=== PATIENT | female | born 1955 | race Caucasian/White ===

== ENCOUNTER 2017-08-25 12:45 | Inpatient (IN) | payer MEDICARE, OTHER ==
[~2017-08-25] VITALS: Ht 142.2 cm; Wt 106.8 kg
[2017-08-25] VITALS (9 sets, daily range): BP systolic 121–154; BP diastolic 56–72; PULSE 76–95; RESP 18–26; TEMP 97.5–98.6; O2SAT 92–100
[~2017-08-25 12:45] MED LIST: ALPR.25 PO; FURO20TA PO; OMEP20TA PO; PARO10TA PO; SPIR25TA PO
--- NOTE | 2017-08-25 13:31 | RADRPT ---
EXAM DATE: 08/25/2017 1:21 PM EDT AGE/SEX: 62 years / Female INDICATIONS: Difficulty breathing and cough. CLINICAL DATA: This is the patient's initial encounter. Patient reports that signs and symptoms have been present for 4 - 6 days and indicates a pain score of 0/10. MEDICAL/SURGICAL HISTORY: Chronic obstructive pulmonary disease. None. COMPARISON: No prior exams available for comparison. FINDINGS: PA and lateral views of the chest demonstrate the lungs to be symmetrically aerated without evidence of mass, infiltrate or effusion. The cardiomediastinal contours are unremarkable. Osseous structures are intact. CONCLUSION: Negative examination. Electronically signed by: Russel Smith MD 08/25/2017 1:30 PM EDT
[2017-08-25 13:55] LABS: AUTOMATED NEUTROPHIL # 1.3 TH/MM3 (1.8-7.7); BASOPHIL % 1.3 % (0.0-2.0); EOSINOPHIL # 0.2 TH/MM3 (0-0.4); EOSINOPHIL % 6.7 % (0.0-4.0); HEMATOCRIT 37.1 % (35.0-46.0); HEMOGLOBIN 12.5 GM/DL (11.6-15.3); MEAN CELL VOLUME 95.4 FL (80.0-100.0); MEAN CORPUSCULAR HEMOGLOBIN 32.2 PG (27.0-34.0); MEAN CORPUSCULAR HGB CONC 33.8 % (32.0-36.0); MEAN PLATELET VOLUME 8.9 FL (7.0-11.0); MONO % 12.8 % (0.0-8.0); MONOCYTE # 0.4 TH/MM3 (0-0.9); NEUT % 44.2 % (16.0-70.0); PLATELET COUNT 60 TH/MM3 (150-450); RED BLOOD COUNT 3.89 MIL/MM3 (4.00-5.30); RED CELL DISTRIBUTION WIDTH 15.8 % (11.6-17.2); WHITE BLOOD COUNT 2.9 TH/MM3 (4.0-11.0)
[2017-08-25 14:13] LABS: BICARBONATE 29.1 MEQ/L (21.0-32.0); CALCIUM 8.2 MG/DL (8.5-10.1); CREATININE 0.67 MG/DL (0.50-1.00)
[2017-08-25] MEDS ORDERED: methylPREDNISolone SOD SUCC 125 MG/2 ML VIAL IV PUSH ONE (14:15)
[2017-08-25] MEDS ORDERED: SODIUM CHLORIDE 0.9% FLUSH 10 ML FLUSH IVF PRN (14:15)
[2017-08-25] MEDS: RESP: ALBUTEROL 2.5 MG/IPRATROPIUM 0.5 MG NEB (SCH) INH ×2 (14:22→20:11)
--- NOTE | 2017-08-25 14:44 | PD ---
HPI Chief Complaint: Respiratory Distress Time Seen by Provider: 13:37 Travel History International Travel<30 days: No Contact w/Intl Traveler<30days: No Traveled to known affect area: No History of Present Illness HPI 62-year-old female with PMH of GERD, COPD, HTN presents the ED for evaluation of 5 days history of worsening shortness of breath, cough productive of yellow phlegm. Patient endorses chills, has not measured a fever at home. She also endorses sinus congestion, rhinorrhea and sore throat. She endorses increasing edema in the lower extremities. States that she can only walk for 5 steps before becoming short of breath. Denies chest pain, palpitations, abdominal pain, nausea, vomiting. She is not oxygen dependent at home. Denies sick contacts. Did not receive this years flu vaccine. PFSH Past Medical History Arthritis: Yes Anxiety: Yes Depression: Yes Cancer: No Diabetes: No Diminished Hearing: No Gastrointestinal Disorders: Yes (HAD LIVER BIOP 07/22; POLYPS) GERD: Yes Glaucoma: No Hepatitis: Yes (HEP C, CIRRHOSIS) Hiatal Hernia: Yes Hypertension: No Inguinal Hernia: Yes Respiratory: Yes Thyroid Disease: No Menopausal: Yes : 2 Para: 2 Miscarriage: 0 Tubal Ligation: Yes Past Surgical History Abdominal Surgery: Yes (CHOLECTSTECTOMY) Cardiac Surgery: No Section: Yes (X2) Cholecystectomy: Yes Ear Surgery: No Endocrine Surgery: No Eye Surgery: No Genitourinary Surgery: No Gynecologic Surgery: Yes (C SECTION X 2, HYSTERECTOMY) Hysterectomy: Yes (2006) Oral Surgery: No Pacemaker: No Thoracic Surgery: No Other Surgery: Yes Social History Alcohol Use: No Tobacco Use: Yes (1/2 PACK CIGS/DAY) Substance Use: No (DENIES) Allergies-Medications (Allergen,Severity, Reaction): Coded Allergies: No Known Allergies (Verified Allergy, Unknown, 08/25/17) Uncoded Allergies: PT WITH STAGE 3 LIVER DISEASE (Adverse Reaction, Severe, 07/22/11) Reported Meds & Prescriptions Reported Meds & Active Scripts Active Reported Furosemide 20 Mg Tab 20 Mg PO DAILY Paroxetine Hcl 10 Mg Tab 10 Mg PO DAILY Spironolactone 25 Mg Tab 25 Mg PO DAILY Omeprazole 20 mg (Omeprazole) 20 Mg Tab 20 Mg PO BID Xanax 0.25 Mg (Alprazolam) 0.25 Mg Tab 0.25 Mg PO HS Review of Systems Except as stated in HPI: all other systems reviewed are Neg Physical Exam Narrative GENERAL: Pleasant, obese white female with some increased work of breathing. SKIN: Focused skin assessment warm/dry. HEAD: Atraumatic. Normocephalic. EYES: Pupils equal and round. No scleral icterus. No injection or drainage. ENT: No nasal bleeding or discharge. Mucous membranes pink and moist. NECK: Trachea midline. No JVD. CARDIOVASCULAR: Regular rate and rhythm. No murmur appreciated. RESPIRATORY: +accessory muscle use. Breath sounds wheezy and tight bilaterally. No rhonchi. GASTROINTESTINAL: Abdomen soft, non-tender, nondistended. Hepatic and splenic margins not palpable. MUSCULOSKELETAL: No obvious deformities. No clubbing. No cyanosis. 2+ pitting edema to the knees bilaterally. Vasculitic changes in the lower extremities. NEUROLOGICAL: Awake and alert. No obvious cranial nerve deficits. Motor grossly within normal limits. Normal speech. PSYCHIATRIC: Appropriate mood and affect; insight and judgment normal. Data Data Last Documented VS Vital Signs Date Time Temp Pulse Resp B/P (MAP) Pulse Ox O2 Delivery O2 Flow Rate FiO2 08/25/17 15:17 84 19 142/63 (89) 99 BiPAP 08/25/17 15:10 40 08/25/17 14:47 15.00 08/25/17 12:53 97.6 Orders Orders Complete Blood Count With Diff (08/25/17 13:01) Basic Metabolic Panel (Bmp) (08/25/17 13:01) Chest, Pa & Lat (08/25/17 13:01) Blood Culture (08/25/17 13:01) B-Type Natriuretic Peptide (08/25/17 14:06) Influenzae A/B Antigen (08/25/17 14:06) Iv Access Insert/Monitor (08/25/17 14:06) Electrocardiogram (08/25/17 14:06) Ecg Monitoring (08/25/17 14:06) Oximetry (08/25/17 14:06) Oxygen Administration (08/25/17 14:06) Sodium Chloride 0.9% Flush (Ns Flush) (08/25/17 14:15) Methylprednisolone So Succ Inj (Solumedr (08/25/17 14:15) Albuterol-Ipratropium Neb (Duoneb Neb) (08/25/17 14:15) Resp Bipap / Cpap Non Invas Vt (08/25/17 ) Admit Order (Ed Use Only) (08/25/17 16:11) Labs Laboratory Tests Test 08/25/17 13:24 White Blood Count 2.9 TH/MM3 Red Blood Count 3.89 MIL/MM3 Hemoglobin 12.5 GM/DL Hematocrit 37.1 % Mean Corpuscular Volume 95.4 FL Mean Corpuscular Hemoglobin 32.2 PG Mean Corpuscular Hemoglobin Concent 33.8 % Red Cell Distribution Width 15.8 % Platelet Count 60 TH/MM3 Mean Platelet Volume 8.9 FL Neutrophils (%) (Auto) 44.2 % Lymphocytes (%) (Auto) 35.0 % Monocytes (%) (Auto) 12.8 % Eosinophils (%) (Auto) 6.7 % Basophils (%) (Auto) 1.3 % Neutrophils # (Auto) 1.3 TH/MM3 Lymphocytes # (Auto) 1.0 TH/MM3 Monocytes # (Auto) 0.4 TH/MM3 Eosinophils # (Auto) 0.2 TH/MM3 Basophils # (Auto) 0.0 TH/MM3 CBC Comment AUTO DIFF Differential Comment AUTO DIFF CONFIRMED Blood Urea Nitrogen 6 MG/DL Creatinine 0.67 MG/DL Random Glucose 128 MG/DL Calcium Level 8.2 MG/DL Sodium Level 142 MEQ/L Potassium Level 4.5 MEQ/L Chloride Level 107 MEQ/L Carbon Dioxide Level 29.1 MEQ/L Anion Gap 6 MEQ/L Estimat Glomerular Filtration Rate 90 ML/MIN B-Type Natriuretic Peptide 129 PG/ML MDM Medical Decision Making Medical Screen Exam Complete: Yes Emergency Medical Condition: Yes Differential Diagnosis COPD exacerbation versus CHF versus bronchospasm versus pneumonia versus other Narrative Course 62-year-old female with PMH of GERD, COPD, HTN presents the ED for evaluation of 5 days history of worsening shortness of breath, cough productive of yellow phlegm. She endorses increasing edema in the lower extremities. States that she can only walk for 5 steps before becoming short of breath. She is not oxygen dependent at home. Did not receive this years flu vaccine. Patient is afebrile, O2 sats 92% on room air on arrival. Breath sounds tight and wheezy, limited air movement bilaterally. IV was established. Patient was administered IV Solu-Medrol, duo nebs 3. EKG rate 86, sinus rhythm. AL interval 146, QRS 96, QTc 423 ms. Normal axis. No acute ST changes. Reviewed by Dr. Centeno. O2 sats not improved after treatment. Patient anxious, coughing. She is placed on BiPAP, O2 sats improved. BNP 129. CBC: WBC 2.9. Hemoglobin 12.5. BMP: BUN 6, creatinine 0.67. CXR: Negative per radiology read. Rapid flu swab negative. Will admit for COPD exacerbation. Patient agreeable to the plan. I spoke with Dr. Padilla who agrees to accept the patient the medicine service. Please see medicine notes for disposition. Barbara Martínez Aug 25, 2017 14:44
[2017-08-25] MEDS ORDERED: MAGNESIUM HYDROXIDE SUSP 30 ML CUP PO PRN (16:30)
[2017-08-25] MEDS ORDERED: NALOXONE HCL 0.4 MG/ML AMP IV PUSH PRN (16:30)
[2017-08-25] MEDS ORDERED: MORPHINE SULFATE 2 MG/ML SYRINGE IV PUSH PRN ×2 (16:30)
[2017-08-25] MEDS ORDERED: ONDANSETRON ODT 4 MG TAB PO PRN (17:15)
--- NOTE | 2017-08-25 17:51 | HHI.HP ---
[facility] Bryanna Ireland MD Admission Diagnosis Hypoxia, COPD exacerbation Diagnoses: (1) COPD exacerbation Diagnosis: Principal (2) Bronchitis Diagnosis: Principal (3) Hypoxia Diagnosis: Principal (4) Respiratory failure Diagnosis: Principal Travel History International Travel<30 Days: No Contact w/Intl Traveler <30 Da: No Traveled to Known Affected Are: No History of Present Illness Mrs. Godoy is a 62 year old female. She has a past medical history of COPD. She says that her last COPD exacerbation was approximately 2-3 years ago. At baseline her COPD is relatively well controlled. She does not use oxygen at home. She feels that she has developed a bronchitis within the last 5 days and this has led to graduating shortness of breath with wheezing. She comes in in acute respiratory distress. Oxygen was provided and breathing treatments but did not benefit the patient's symptoms. She is maintaining her saturations but with exertion was becoming hypoxic. However she was exhibiting some severe respiratory distress so she was started on BiPAP. Since starting BiPAP she has had improvement. She feels that she is improving at this point. No other complaints. No fever. She has had symptoms of bronchitis including productive cough and chills. Review of Systems Constitutional: COMPLAINS OF: Fatigue, Chills, DENIES: Fever Eyes: DENIES: Blurred vision, Diplopia, Eye inflammation, Eye pain Ears, nose, mouth, throat: DENIES: Tinnitus, Hearing loss, Vertigo, Nasal discharge Respiratory: DENIES: Apneas, Cough, Snoring, Wheezing Cardiovascular: DENIES: Chest pain, Palpitations, Syncope, Dyspnea on Exertion Gastrointestinal: DENIES: Abdominal pain, Black stools, Bloody stools, Constipation Musculoskeletal: DENIES: Joint pain, Muscle aches, Stiffness, Joint Swelling Integumentary: DENIES: Abnormal pigmentation, Pruritus, Rash Hematologic/lymphatic: DENIES: Bruising, Lymphadenopathy Immunologic/allergic: DENIES: Eczema, Urticaria Neurologic: DENIES: Abnormal gait, Headache, Paresthesias Psychiatric: DENIES: Anxiety, Confusion, Hallucinations Past Family Social History Past Medical History COPD Osteoarthritis General anxiety disorder Depression Gastroesophageal reflux disease Hepatitis C/cirrhosis Hiatal hernia Past Surgical History Cholecystectomy 2 Cholecystectomy Hysterectomy Reported Medications Reported Meds & Active Scripts Active Reported Furosemide 20 Mg Tab 20 Mg PO DAILY Paroxetine Hcl 10 Mg Tab 10 Mg PO DAILY Spironolactone 25 Mg Tab 25 Mg PO DAILY Omeprazole 20 mg (Omeprazole) 20 Mg Tab 20 Mg PO BID Xanax 0.25 Mg (Alprazolam) 0.25 Mg Tab 0.25 Mg PO HS Allergies: Coded Allergies: No Known Allergies (Verified Allergy, Unknown, 08/25/17) Uncoded Allergies: PT WITH STAGE 3 LIVER DISEASE (Adverse Reaction, Severe, 07/22/11) Family History Melanoma in mother Neck cancer and CVA in father Social History Alcohol Use: No Tobacco Use: Yes (1/2 PACK CIGS/DAY) Substance Use: No (DENIES) Physical Exam Vital Signs Vital Signs Date Time Temp Pulse Resp B/P (MAP) Pulse Ox O2 Delivery O2 Flow Rate FiO2 08/25/17 15:17 84 19 142/63 (89) 99 BiPAP 08/25/17 15:10 100 40 08/25/17 14:47 92 Aerosol Mask 15.00 08/25/17 14:47 25 92 Aerosol Mask 15.00 08/25/17 14:47 92 Room Air 15.00 08/25/17 12:53 97.6 76 26 149/70 (96) 92 Physical Exam GENERAL: NAD, A&Ox3 HEAD: Normocephalic. NECK: Supple, trachea midline. No lymphadenopathy. EYES: No scleral icterus. No injection or drainage. CARDIOVASCULAR: Regular rate and rhythm without murmurs, gallops, or rubs. RESPIRATORY: Breath sounds equal bilaterally. No accessory muscle use. Bilateral wheezing, BiPAP in place. GASTROINTESTINAL: Abdomen soft, non-tender, nondistended. MUSCULOSKELETAL: No cyanosis, or edema. SKIN: Warm and dry. NEURO: No focal neurological deficitis. Laboratory Laboratory Tests Test 08/25/17 13:24 White Blood Count 2.9 Red Blood Count 3.89 Hemoglobin 12.5 Hematocrit 37.1 Mean Corpuscular Volume 95.4 Mean Corpuscular Hemoglobin 32.2 Mean Corpuscular Hemoglobin Concent 33.8 Red Cell Distribution Width 15.8 Platelet Count 60 Mean Platelet Volume 8.9 Neutrophils (%) (Auto) 44.2 Lymphocytes (%) (Auto) 35.0 Monocytes (%) (Auto) 12.8 Eosinophils (%) (Auto) 6.7 Basophils (%) (Auto) 1.3 Neutrophils # (Auto) 1.3 Lymphocytes # (Auto) 1.0 Monocytes # (Auto) 0.4 Eosinophils # (Auto) 0.2 Basophils # (Auto) 0.0 CBC Comment AUTO DIFF Differential Comment AUTO DIFF CONFIRMED Blood Urea Nitrogen 6 Creatinine 0.67 Random Glucose 128 Calcium Level 8.2 Sodium Level 142 Potassium Level 4.5 Chloride Level 107 Carbon Dioxide Level 29.1 Anion Gap 6 Estimat Glomerular Filtration Rate 90 B-Type Natriuretic Peptide 129 Date/Time Source Procedure Growth Status 08/25/17 13:25 Blood Peripheral Aerobic Blood Culture Pending Received 08/25/17 13:25 Blood Peripheral Anaerobic Blood Culture Pending Received 08/25/17 14:30 Nasal Washing Influenza Types A,B Antigen (BRAEDEN) - Final NEGATIVE FOR FLU A AND B ANTIGEN.... Complete Result Diagram: 08/25/17 1324 08/25/17 1324 Imaging Last Impressions Chest X-Ray 08/25/17 1301 Signed Impressions: CONCLUSION: Negative examination. Caprini VTE Risk Assessment Caprini VTE Risk Assessment: No/Low Risk (score <= 1) Caprini Risk Assessment Model Point Value = 1 Point Value = 2 Point Value = 3 Point Value = 5 Age 41-60 Minor surgery BMI > 25 kg/m2 Swollen legs Varicose veins or History of unexplained or recurrent spontaneous Oral contraceptives or hormone replacement Sepsis (< 1 month) Serious lung disease, including pneumonia (< 1 month) Abnormal pulmonary function Acute myocardial infarction Congestive heart failure (< 1 month) History of inflammatory bowel disease Medical patient at bed rest Age 61-74 Arthroscopic surgery Major open surgery (> 45 min) Laparoscopic surgery (> 45 min) Malignancy Confined to bed (> 72 hours) Immobilizing plaster cast Central venous access Age >= 75 History of VTE Family history of VTE Factor V Leiden Prothrombin [id number] Lupus anticoagulant Anticardiolipin antibodies Elevated serum homocysteine Heparin-induced thrombocytopenia Other congenital or acquired thrombophilia Stroke (< 1 month) Elective arthroplasty Hip, pelvis, or leg fracture Acute spinal cord injury (< 1 month) Prophylaxis Regimen Total Risk Factor Score Risk Level Prophylaxis Regimen 0-1 Low Early ambulation 2 Moderate Order ONE of the following: *Sequential Compression Device (SCD) *Heparin 5000 units SQ BID 3-4 Higher Order ONE of the following medications: *Heparin 5000 units SQ TID *Enoxaparin/Lovenox 40 mg SQ daily (WT < 150 kg, CrCl > 30 mL/min) *Enoxaparin/Lovenox 30 mg SQ daily (WT < 150 kg, CrCl > 10-29 mL/min) *Enoxaparin/Lovenox 30 mg SQ BID (WT < 150 kg, CrCl > 30 mL/min) AND/OR *Sequential Compression Device (SCD) 5 or more Highest Order ONE of the following medications: *Heparin 5000 units SQ TID (Preferred with Epidurals) *Enoxaparin/Lovenox 40 mg SQ daily (WT < 150 kg, CrCl > 30 mL/min) *Enoxaparin/Lovenox 30 mg SQ daily (WT < 150 kg, CrCl > 10-29 mL/min) *Enoxaparin/Lovenox 30 mg SQ BID (WT < 150 kg, CrCl > 30 mL/min) AND *Sequential Compression Device (SCD) Assessment and Plan Problem List: (1) COPD exacerbation ICD Code: J44.1 - Chronic obstructive pulmonary disease with (acute) exacerbation (2) Bronchitis ICD Code: J40 - Bronchitis, not specified as acute or chronic (3) Hypoxia ICD Code: R09.02 - Hypoxemia (4) Respiratory failure ICD Code: J96.90 - Respiratory failure, unspecified, unspecified whether with hypoxia or hypercapnia Assessment and Plan 62-year-old female admitted secondary to COPD exacerbation and hypoxia related to bronchitis COPD exacerbation Hypoxia Respiratory failure Bronchitis Continue oxygen supplements as needed Schedule duo nebs When necessary albuterol Azithromycin Systemic steroids Follow for improvement in respiratory status Follow for improvement in exertional tolerance next Continue BiPAP and wean as tolerated Consider oxygen walk test prior to discharge Osteoarthritis General anxiety disorder Depression Gastroesophageal reflux disease Hepatitis C/cirrhosis Hiatal hernia Follow clinically Nicotine dependence Patient counseled to quit smoking DVT prophylaxis SCDs, Lovenox Physician Certification 2 Midnight Certification Type: Admission for Inpatient Services Order for Inpatient Services The services are ordered in accordance with Medicare regulations or non- Medicare payer requirements, as applicable. In the case of services not specified as inpatient-only, they are appropriately provided as inpatient services in accordance with the 2-midnight benchmark. Estimated LOS (days): 2 days is the estimated time the patient will need to remain in the hospital, assuming treatment plan goals are met and no additional complications. Post-Hospital Plan: Home Jerry Padilla MD Aug 25, 2017 17:51
[2017-08-25] MEDS ORDERED: RESP: ALBUTEROL 2.5 MG/3 ML NEB (PRN) INH (18:00)
[2017-08-25] MEDS ORDERED: GABA300C5 PO (18:05)
[2017-08-25] MEDS ORDERED: OMEP20TA93 PO (18:05)
[2017-08-25] MEDS ORDERED: PAXI10TA8 PO (18:05)
[2017-08-25] MEDS ORDERED: DILA4TAB10 PO (18:05)
[2017-08-25] MEDS ORDERED: FURO20TA PO (18:05)
[2017-08-25] MEDS ORDERED: XANA2TAB2 PO (18:05)
[2017-08-25] MEDS ORDERED: SPIR25TA PO (18:05)
[2017-08-25] MEDS ORDERED: RANI150T PO (18:05)
[2017-08-25] MEDS: SODIUM CHLOR 0.9% 1000 ML INJ 1,000 ML IV SCH (19:09)
[2017-08-25] MEDS: AZITHROMYCIN INJ 500 MG in SODIUM CHLOR 0.9% 250 ML INJ 250 ML IV SCH (19:10)
[2017-08-25] MEDS: ENOXAPARIN SODIUM 40 MG/0.4 ML SYRINGE SQ SCH (19:10)
--- NOTE | 2017-08-25 19:36 | EKG ---
Date Performed: 08/25/2017 Time Performed: 13:56:06 PTAGE: 62 years EKG: Sinus rhythm NORMAL ECG No significant change from prior electrocardiogram. PREVIOUS TRACING : 08/05/2015 21.01 DOCTOR: Wesley Salas Interpretating Date/Time 08/25/2017 19:35:24
[2017-08-25] MEDS: methylPREDNISolone SOD SUCC 125 MG/2 ML VIAL IV PUSH SCH (21:57)
[2017-08-25] MEDS: MORPHINE SULFATE 4 MG/ML INJ IV PRN (22:00)
[2017-08-25] MEDS: SODIUM CHLORIDE 0.9% FLUSH 10 ML FLUSH IV FLUSH SCH (22:03)
[2017-08-26] VITALS (7 sets, daily range): BP systolic 128–159; BP diastolic 65–72; PULSE 73–85; RESP 16–20; TEMP 97.8–98; O2SAT 93–99
[2017-08-26] MEDS: MORPHINE SULFATE 4 MG/ML INJ IV PRN ×3 (03:35→20:48)
[2017-08-26] MEDS ORDERED: ALPRAZolam 0.5 MG TAB PO ONE (03:45)
[2017-08-26] MEDS: SODIUM CHLOR 0.9% 1000 ML INJ 1,000 ML IV SCH ×2 (06:47→17:47)
[2017-08-26 06:54] LABS: AUTOMATED NEUTROPHIL # 2.4 TH/MM3 (1.8-7.7); BASOPHIL % 0.5 % (0.0-2.0); EOSINOPHIL % 0.2 % (0.0-4.0); HEMATOCRIT 34.2 % (35.0-46.0); HEMOGLOBIN 11.5 GM/DL (11.6-15.3); LYMPH % 16.3 % (9.0-44.0); LYMPHOCYTE # 0.5 TH/MM3 (1.0-4.8); MEAN CELL VOLUME 95.8 FL (80.0-100.0); MEAN CORPUSCULAR HEMOGLOBIN 32.1 PG (27.0-34.0); MEAN CORPUSCULAR HGB CONC 33.5 % (32.0-36.0); MEAN PLATELET VOLUME 8.4 FL (7.0-11.0); MONO % 2.4 % (0.0-8.0); MONOCYTE # 0.1 TH/MM3 (0-0.9); NEUT % 80.6 % (16.0-70.0); PLATELET COUNT 47 TH/MM3 (150-450); RED BLOOD COUNT 3.57 MIL/MM3 (4.00-5.30); WHITE BLOOD COUNT 2.9 TH/MM3 (4.0-11.0)
[2017-08-26 07:14] LABS: ALBUMIN 2.4 GM/DL (3.4-5.0); ALT (GPT) 22 U/L (10-53); AST (GOT) 34 U/L (15-37); BLOOD UREA NITROGEN 7 MG/DL (7-18); CALCIUM 8.2 MG/DL (8.5-10.1); CHLORIDE 107 MEQ/L (98-107); GLOMERULAR FILTRATION RATE 126 ML/MIN (>89); GLUCOSE,RANDOM 107 MG/DL (74-106); SODIUM (NA) 141 MEQ/L (136-145)
[2017-08-26 07:17] LABS: ALKALINE PHOSPHATASE 91 U/L (45-117); TOTAL BILIRUBIN ADULT 0.4 MG/DL (0.2-1.0); TOTAL PROTEIN 6.5 GM/DL (6.4-8.2)
[2017-08-26] MEDS ORDERED: PNEUMOCOCCAL POLYVALENT INJ 25 MCG/0.5 ML SYR IM ONE (09:00)
[2017-08-26] MEDS: RESP: ALBUTEROL 2.5 MG/IPRATROPIUM 0.5 MG NEB (SCH) INH ×3 (09:14→21:00)
[2017-08-26] MEDS: methylPREDNISolone SOD SUCC 125 MG/2 ML VIAL IV PUSH SCH (09:44)
[2017-08-26] MEDS: SODIUM CHLORIDE 0.9% FLUSH 10 ML FLUSH IV FLUSH SCH ×2 (09:49→20:49)
--- NOTE | 2017-08-26 14:38 | HHI.PR ---
Subjective Remarks With severe wheezing, coughing some yellow sputum production. No fever or chills overnight. No nausea or vomiting. Able to eat something but not much. She has decreased appetite. Objective Vitals Vital Signs Date Time Temp Pulse Resp B/P (MAP) Pulse Ox O2 Delivery O2 Flow Rate FiO2 08/26/17 12:00 97.8 85 20 144/66 (92) 95 08/26/17 09:16 99 Nasal Cannula 3.00 08/26/17 08:00 97.8 73 20 145/69 (94) 96 08/26/17 08:00 Nasal Cannula 3.00 08/26/17 04:35 97.9 76 20 139/65 (89) 93 08/25/17 23:40 98.5 95 20 135/62 (86) 95 08/25/17 21:05 97.5 95 22 154/72 (99) 95 08/25/17 20:11 96 Nasal Cannula 3.00 08/25/17 20:00 Nasal Cannula 3.00 08/25/17 18:30 98.6 84 18 121/56 (77) 93 08/25/17 18:11 08/25/17 18:00 83 19 124/57 (79) 95 Nasal Cannula 2.00 08/25/17 15:17 84 19 142/63 (89) 99 BiPAP 08/25/17 15:10 100 40 08/25/17 14:47 92 Aerosol Mask 15.00 08/25/17 14:47 25 92 Aerosol Mask 15.00 08/25/17 14:47 92 Room Air 15.00 I/O 08/25/17 08/25/17 08/25/17 08/26/17 08/26/17 08/26/17 07:00 15:00 23:00 07:00 15:00 23:00 Intake Total 480 ml Output Total 350 ml Balance 130 ml Intake Oral 480 ml Output Urine Total 350 ml # Bowel Movements 0 Result Diagram: 08/26/17 0607 08/26/17 0607 Imaging Last Impressions Chest X-Ray 08/25/17 1301 Signed Impressions: CONCLUSION: Negative examination. Objective Remarks GENERAL: The patient is in bed she appears short of breath with wheezing. On nasal cannula at this time. CARDIOVASCULAR: Regular rate and rhythm without murmurs, gallops, or rubs. RESPIRATORY: Scattered wheezing, bronchial sounds. No accessory muscle use. With shortness of breath. On nasal cannula. GASTROINTESTINAL: Abdomen soft, non-tender, nondistended. MUSCULOSKELETAL: No cyanosis, or edema. SKIN: Warm and dry. NEURO: Awake and alert. Follows commands. A/P Problem List: (1) COPD exacerbation ICD Code: J44.1 - Chronic obstructive pulmonary disease with (acute) exacerbation (2) Bronchitis ICD Code: J40 - Bronchitis, not specified as acute or chronic (3) Hypoxia ICD Code: R09.02 - Hypoxemia (4) Respiratory failure ICD Code: J96.90 - Respiratory failure, unspecified, unspecified whether with hypoxia or hypercapnia Assessment and Plan Patient is in bed she appears sometimes 62-year-old female admitted secondary to COPD exacerbation and hypoxia related to bronchitis COPD with exacerbation Hypoxia Acute respiratory failure patient was requiring BiPAP on admission currently on nasal cannula. Patient is not on oxygen at home. Bronchitis Continue oxygen supplements as needed Schedule duo nebs When necessary albuterol Azithromycin Systemic steroids, continue to taper Follow for improvement in respiratory status Follow for improvement in exertional tolerance next Off BiPAP as this time. Add incentive spirometry Check blood cultures, Legionella and pneumococcal antigen in the urine, sputum cultures. We will have oxygen walk test prior to discharge Osteoarthritis General anxiety disorder Depression Gastroesophageal reflux disease Hepatitis C/cirrhosis Hiatal hernia Follow clinically Nicotine dependence Patient counseled to quit smoking DVT prophylaxis SCDs, Lovenox Discussed with the patient, nurse Discharge plan pending improvement. Possible discharge in 1 to days improves. Belgica Asher MD Aug 26, 2017 14:38
[2017-08-26] MEDS: AZITHROMYCIN INJ 500 MG in SODIUM CHLOR 0.9% 250 ML INJ 250 ML IV SCH (17:40)
[2017-08-26] MEDS: ENOXAPARIN SODIUM 40 MG/0.4 ML SYRINGE SQ SCH (17:41)
--- NOTE | 2017-08-26 18:51 | PQ ---
Physician Query Response Document PATIENT: FRANK WOOD : 1955 ADMIT DATE: 08/25/2017 4:26 PM DISCH DATE: RESPONDING PROVIDER #: [email or web address] QUERY TEXT: CDS Clarification Acute respiratory failure with hypoxia on the setting of COPD exacerbation and bronchitis requiring t reatment with Bipap, oxygen supplementation, and medication. Other explanation of clinical findings. Unable to determine (no explanation for clinical findings). Please clarify and document your clinical opinion in the progress notes and discharge summary includi ng the definitive and/or presumptive diagnosis (suspected or probable), related to the above clinical findings. Please include clinical findings supporting your diagnosis. Thank you, Flory Polk CDS: Flory Polk Patient Unit: [id number] Contact Number: CDS/RN Room: [facility] The patient's Clinical Indicators include: * Clinical Indicators: worsening SOB, breath sounds tight and wheezy in the ED, O2 sats 92% on RA, hy poxia * Risk Factors: COPD exacerbation, bronchitis * Treatment: BiPAP, oxygen supplements, Duoneb nebulizer treatments Query created by: Flory Polk on 08/26/2017 1:05 PM RESPONSE TEXT: Acute respiratory failure requiring Bipap on admission and now on O2 supplement by [place]. Patient is not on O2 at home. Patient has bronchitis and also COPD with acute exacerbation Electronically signed by: Belgica Asher MD 08/26/2017 6:47 PM
[2017-08-26] MEDS: methylPREDNISolone SOD SUCC 40 MG/1 ML VIAL IV PUSH SCH (20:47)
[2017-08-26] MEDS: guaiFENesin E.R. 600 MG TAB PO SCH (20:48)
[2017-08-27] VITALS (7 sets, daily range): BP systolic 113–160; BP diastolic 69–89; PULSE 74–99; RESP 16–24; TEMP 97.5–98; O2SAT 93–99
[2017-08-27] MEDS: ALPRAZolam 0.5 MG TAB PO PRN ×2 (00:43→23:12)
[2017-08-27] MEDS: MORPHINE SULFATE 4 MG/ML INJ IV PRN ×5 (02:11→23:13)
[2017-08-27] MEDS: SODIUM CHLORIDE 0.9% FLUSH 10 ML FLUSH IV FLUSH PRN (02:13)
[2017-08-27] MEDS: SODIUM CHLOR 0.9% 1000 ML INJ 1,000 ML IV SCH ×2 (05:51→18:12)
[2017-08-27] MEDS: methylPREDNISolone SOD SUCC 40 MG/1 ML VIAL IV PUSH SCH ×3 (05:51→23:12)
[2017-08-27] MEDS: RESP: ALBUTEROL 2.5 MG/IPRATROPIUM 0.5 MG NEB (SCH) INH ×4 (08:59→21:08)
[2017-08-27] MEDS: guaiFENesin E.R. 600 MG TAB PO SCH ×2 (09:10→23:12)
[2017-08-27] MEDS: SODIUM CHLORIDE 0.9% FLUSH 10 ML FLUSH IV FLUSH SCH ×2 (09:11→23:13)
[2017-08-27] MEDS ORDERED: VENTAER INH (09:13)
[2017-08-27] MEDS ORDERED: INSPIREASE DRUG1 EA (09:13)
[2017-08-27] MEDS ORDERED: IPRASOL INH (09:13)
[2017-08-27] MEDS ORDERED: IPRA17I INH (09:13)
[2017-08-27] MEDS ORDERED: GUAI600T11 PO (09:13)
[2017-08-27] MEDS ORDERED: LEVO500T8 PO (09:13)
[2017-08-27] MEDS ORDERED: NEBULIZER1 MI1 (09:13)
[2017-08-27] MEDS ORDERED: PRED10PA PO (09:13)
[2017-08-27] MEDS ORDERED: PULM180I INH (09:14)
--- NOTE | 2017-08-27 09:14 | HHI.DS ---
Discharge Summary Admission Date Aug 25, 2017 at 16:26 Discharge Date: Sep 01, 2017 Admitting Diagnosis Hypoxia, COPD exacerbation (1) COPD exacerbation ICD Code: J44.1 - Chronic obstructive pulmonary disease with (acute) exacerbation (2) Bronchitis ICD Code: J40 - Bronchitis, not specified as acute or chronic (3) Hypoxia ICD Code: R09.02 - Hypoxemia (4) Respiratory failure ICD Code: J96.90 - Respiratory failure, unspecified, unspecified whether with hypoxia or hypercapnia Procedures No procedures Brief History - From Admission Mrs. Godoy is a 62 year old female. She has a past medical history of COPD. She says that her last COPD exacerbation was approximately 2-3 years ago. At baseline her COPD is relatively well controlled. She does not use oxygen at home. She feels that she has developed a bronchitis within the last 5 days and this has led to graduating shortness of breath with wheezing. She comes in in acute respiratory distress. Oxygen was provided and breathing treatments but did not benefit the patient's symptoms. She is maintaining her saturations but with exertion was becoming hypoxic. However she was exhibiting some severe respiratory distress so she was started on BiPAP. Since starting BiPAP she has had improvement. She feels that she is improving at this point. No other complaints. No fever. She has had symptoms of bronchitis including productive cough and chills. CBC/BMP: 08/26/17 0607 08/26/17 0607 Significant Findings Laboratory Tests Test 08/25/17 13:24 08/26/17 06:07 08/26/17 21:23 White Blood Count 2.9 TH/MM3 (4.0-11.0) 2.9 TH/MM3 (4.0-11.0) Red Blood Count 3.89 MIL/MM3 (4.00-5.30) 3.57 MIL/MM3 (4.00-5.30) Platelet Count 60 TH/MM3 (150-450) 47 TH/MM3 (150-450) Monocytes (%) (Auto) 12.8 % (0.0-8.0) Eosinophils (%) (Auto) 6.7 % (0.0-4.0) Neutrophils # (Auto) 1.3 TH/MM3 (1.8-7.7) Blood Urea Nitrogen 6 MG/DL (7-18) Random Glucose 128 MG/DL (74-106) 107 MG/DL (74-106) Calcium Level 8.2 MG/DL (8.5-10.1) 8.2 MG/DL (8.5-10.1) B-Type Natriuretic Peptide 129 PG/ML (0-100) Hemoglobin 11.5 GM/DL (11.6-15.3) Hematocrit 34.2 % (35.0-46.0) Neutrophils (%) (Auto) 80.6 % (16.0-70.0) Lymphocytes # (Auto) 0.5 TH/MM3 (1.0-4.8) Platelet Estimate LOW (NORMAL) Albumin 2.4 GM/DL (3.4-5.0) D-Dimer Quantitative (PE/DVT) 0.57 MG/L FEU (0.00-0.50) Imaging Last Impressions CT Angiography 08/27/17 0000 Signed Impressions: CONCLUSION: 1. Negative for central pulmonary emboli. 2. There is no infiltrate 3. I don't see a rib fracture. 4. Minimal LAD calcifications Chest X-Ray 08/25/17 1301 Signed Impressions: CONCLUSION: Negative examination. PE at Discharge GENERAL: The patient is in bed she appears short of breath with wheezing. On nasal cannula at this time. CARDIOVASCULAR: Regular rate and rhythm without murmurs, gallops, or rubs. RESPIRATORY: No wheezing, less sob, sattign well on NC. No accessory muscle use. With shortness of breath. On nasal cannula. GASTROINTESTINAL: Abdomen soft, non-tender, nondistended. MUSCULOSKELETAL: No cyanosis, or edema. SKIN: Warm and dry. NEURO: Awake and alert. Follows commands. Hospital Course 62-year-old female admitted secondary to COPD exacerbation and hypoxia related to bronchitis/severe COPD Severe COPD Presented with COPD with exacerbation improved now Hypoxia. Failed O2 walking test, needs O2 at home. Acute respiratory failure patient was requiring BiPAP on admission currently on nasal cannula. Patient is not on oxygen at home. Failed oxygen walking test needs oxygen at home. Case management consulted for oxygen arrangements. Bronchitis Continue oxygen supplements as needed Schedule duo nebs When necessary albuterol Azithromycin DC Systemic steroids. Start pred 40 mg daily. Monitor and taper as tolerated. Cont Symbicort. Continue Mucinex to 1200 mg twice daily patient says is helping. Off BiPAP as this time. Incentive spirometry, Acapella Check blood cultures, Legionella and pneumococcal antigen in the urine, sputum cultures. Failed oxygen walk test. Consult figure clerk patient is not improving expected Patient with hypoxia will do CT under to rule out PE. CT angiogram reviewed no PE. Failed oxygen walking patient probably will need oxygen at home Osteoarthritis General anxiety disorder Depression Gastroesophageal reflux disease Hepatitis C/cirrhosis Hiatal hernia Follow clinically Nicotine dependence Patient counseled to quit smoking DVT prophylaxis SCDs, Lovenox Discussed with the patient, nurse Patient improved. Failed oxygen walking test. Needs oxygen at home. All arrangements are done. Patient is discharged home in stable condition to follow -up with PCP and consultants as outpatient. Case management is following for discharge plan. Pt Condition on Discharge: Stable Discharge Disposition: Discharge Home Discharge Time: > 30 minutes Discharge Instructions DIET: Follow Instructions for: Heart Healthy Diet Activities you can perform: Regular-No Restrictions Follow up Referrals: PCP Follow-up - 2-3 Days PCP Follow-up - 2-3 Days @ [facility] MD PCP Follow-up PCP Follow-up Pulmonology - 1 Week Pulmonology - 1 Week Pulmonology New Orders: PULMONARY FUNCTION TEST New Medications: Albuterol 18 GM Inh (Ventolin Hfa 18 GM Inh) 90 Mcg/Act Aer 2 PUFF INH Q4H PRN for SHORTNESS OF BREATH, #1 INHALER 0 Refills Budesonide Powder Inh (Pulmicort Flexhaler) 180 Mcg/Act Inhp 180 MCG INH Q12HR for Asthma Management, #1 INHALER 0 Refills Budesonide-Formoterol Inh (Symbicort Inh) 160-4.5 Mcg/Act Aero 2 PUFF INH Q12HR, #1 INHALER 0 Refills Guaifenesin ER (Mucus Relief ER) 600 Mg Tab 600 MG PO BID PRN for CHEST CONGESTION AND/OR COUGH, #10 TAB 0 Refills Ipratropium HFA 12.9 GM Inh (Atrovent HFA 12.9 GM Inh) 17 Mcg/Actuation Aer 2 PUFF INH Q6HR PRN for SHORTNESS OF BREATH, #1 INHALER 0 Refills Ipratropium-Albuterol Neb (Duoneb) 0.5-2.5 Mg/3 Ml Neb 1 NEBULE INH Q4HR NEB for Breathing Treatment, #180 NEBULE 0 Refills Levofloxacin (Levofloxacin) 500 Mg Tablet 500 MG PO DAILY for Infection, #7 TAB 0 Refills Nebulizer (Nebulizer) 1 Mis Mis EA .XX DIRECTED for Breathing Treatment, #1 0 Refills Oxygen tank (Oxygen tank) 1 Ea Tank LITER LAURI.CANULA CONTINUOUS for HYPOXEMIA PREVENTION, #2 Oxygen Concentrator Portable Gaseous 2 L/min via Nasal Cannula Continuous For 99 months Prednisone (21) 10 mg tab Dose Pack (Prednisone (21) 10 mg tab Dose Pack) 10 Mg Pack 10 MG PO DIRECTED for Inflammation, #1 DSPK 0 Refills Spacer/Device For Mdi (Inspirease Drug Delivery) 1 Ea Mis EA .XX DIRECTED, #1 0 Refills Continued Medications: Alprazolam (Xanax) 2 Mg Tab 2 MG PO HS PRN for INSOMNIA, TAB 0 Refills Furosemide (Furosemide) 20 Mg Tab 20 MG PO DAILY, #30 TAB 0 Refills Gabapentin (Gabapentin) 300 Mg Cap 300 MG PO TID, #90 CAP 0 Refills Hydromorphone (Dilaudid) 4 Mg Tab 4 MG PO Q6H PRN for Pain Management, TAB 0 Refills Omeprazole (Omeprazole) 20 Mg Tab 20 MG PO DAILY, #30 TAB 0 Refills Paroxetine (Paxil) 10 Mg Tab 10 MG PO HS, #30 TAB 0 Refills Ranitidine (Ranitidine) 150 Mg Tab 150 MG PO HS for Heartburn Management, #30 TAB 0 Refills Spironolactone (Spironolactone) 25 Mg Tab 25 MG PO DAILY, #30 TAB 0 Refills Belgica Asher MD Aug 27, 2017 09:14
[2017-08-27] MEDS ORDERED: SYMB160A INH (09:29)
[2017-08-27] MEDS ORDERED: IOHEXOL 350 MG/ML 10 ML VIAL (for RAD DIAG) IVCONTRAST ONE (11:40)
--- NOTE | 2017-08-27 12:03 | RADRPT ---
EXAM DATE: 08/27/2017 11:55 AM EDT AGE/SEX: 62 years / Female INDICATIONS: Hypoxia, shortness of breath, chest pain while coughing. CLINICAL DATA: This is the patient's initial encounter. Patient reports that signs and symptoms have been present for 1 day and indicates a pain score of 2/10. MEDICAL/SURGICAL HISTORY: Chronic obstructive pulmonary disease. None. RADIATION DOSE: 10.63 CTDI (mGy) COMPARISON: No prior exams available for comparison. TECHNIQUE: Volumetric scanning was performed using a multi-row detector CT scanner during bolus infu elaina of 55 ml Omnipaque 350 (iohexol) nonionic water-soluble contrast as a single exam dose. The marlon a was post processed with a variety of visualization algorithms including full volume maximum intensi ty projection and sliding thin slab reformation. Using automated exposure control and adjustment of the mA and/or kV according to patient size, radiation dose was kept as low as reasonably achievable t o obtain optimal diagnostic quality images. FINDINGS: Pulmonary Arteries: No filling defects are seen in the pulmonary arteries out to the subsegmental ve ssels. The left and right pulmonary arteries are normal in diameter. Lung: No infiltrates seen. Effusion: None. Mediastinum: Minimal LAD calcifications are noted. There is no mediastinal adenopathy. Other: The axilla is unremarkable. CONCLUSION: 1. Negative for central pulmonary emboli. 2. There is no infiltrate 3. I don't see a rib fracture. 4. Minimal LAD calcifications Electronically signed by: Israel Arambula MD 08/27/2017 12:02 PM EDT
--- NOTE | 2017-08-27 17:01 | HHI.PR ---
Subjective Remarks The patient is in bed she is still with significant wheezing. Still with shortness of breath. Cough yellow whitish sputum production. She is desaturating. Says she has never been on oxygen. Will consult pulmonology as well. Otherwise she can eat no nausea or vomiting. She did sleep better overnight. Objective Vitals Vital Signs Date Time Temp Pulse Resp B/P (MAP) Pulse Ox O2 Delivery O2 Flow Rate FiO2 08/27/17 12:08 97.5 93 20 146/74 (98) 98 08/27/17 10:17 2.00 08/27/17 09:02 Nasal Cannula 3.00 08/27/17 08:20 97.6 77 21 160/89 (112) 97 08/27/17 04:00 97.6 74 16 127/75 (92) 96 08/27/17 00:00 97.8 88 18 113/69 (84) 97 08/26/17 21:02 97 Nasal Cannula 3.00 08/26/17 20:00 97.8 85 16 128/72 (90) 96 08/26/17 20:00 Nasal Cannula 3.00 I/O 08/26/17 08/26/17 08/26/17 08/27/17 08/27/17 08/27/17 07:00 15:00 23:00 07:00 15:00 23:00 Intake Total 480 ml Output Total 350 ml Balance 130 ml Intake Oral 480 ml Output Urine Total 350 ml # Bowel Movements 0 Result Diagram: 08/26/17 0607 08/26/17 [address] Angiography 08/27/17 0000 Signed Impressions: CONCLUSION: 1. Negative for central pulmonary emboli. 2. There is no infiltrate 3. I don't see a rib fracture. 4. Minimal LAD calcifications Chest X-Ray 08/25/17 1301 Signed Impressions: CONCLUSION: Negative examination. Objective Remarks GENERAL: The patient is in bed she appears short of breath with wheezing. Speaks in short sentences. On nasal cannula at this time. CARDIOVASCULAR: Regular rate and rhythm without murmurs, gallops, or rubs. RESPIRATORY: Scattered wheezing,. No accessory muscle use. With shortness of breath. On nasal cannula. GASTROINTESTINAL: Abdomen soft, non-tender, nondistended. MUSCULOSKELETAL: No cyanosis, or edema. SKIN: Warm and dry. NEURO: Awake and alert. Follows commands. A/P Problem List: (1) COPD exacerbation ICD Code: J44.1 - Chronic obstructive pulmonary disease with (acute) exacerbation (2) Bronchitis ICD Code: J40 - Bronchitis, not specified as acute or chronic (3) Hypoxia ICD Code: R09.02 - Hypoxemia (4) Respiratory failure ICD Code: J96.90 - Respiratory failure, unspecified, unspecified whether with hypoxia or hypercapnia Assessment and Plan Patient is in bed she appears sometimes 62-year-old female admitted secondary to COPD exacerbation and hypoxia related to bronchitis COPD with exacerbation Hypoxia Acute respiratory failure patient was requiring BiPAP on admission currently on nasal cannula. Patient is not on oxygen at home. Bronchitis Continue oxygen supplements as needed Schedule duo nebs When necessary albuterol Azithromycin Systemic steroids, continue to taper Follow for improvement in respiratory status Follow for improvement in exertional tolerance next Off BiPAP as this time. Add incentive spirometry Add Acapella Increase Mucinex to 1200 mg twice daily patient says is helping. Check blood cultures, Legionella and pneumococcal antigen in the urine, sputum cultures. We will have oxygen walk test prior to discharge Consult net sorter patient is not improving expected Patient with hypoxia will do CT under to rule out PE. CT angiogram reviewed no PE. Failed oxygen walking patient probably will need oxygen at home Osteoarthritis General anxiety disorder Depression Gastroesophageal reflux disease Hepatitis C/cirrhosis Hiatal hernia Follow clinically Nicotine dependence Patient counseled to quit smoking DVT prophylaxis SCDs, Lovenox Discussed with the patient, nurse Discharge plan pending improvement. Possible discharge in 1 to 2 days IF improves and if is cleared by pulmonology. Belgica Asher MD Aug 27, 2017 17:01
[2017-08-27] MEDS: AZITHROMYCIN INJ 500 MG in SODIUM CHLOR 0.9% 250 ML INJ 250 ML IV SCH (18:00)
[2017-08-27] MEDS: ENOXAPARIN SODIUM 40 MG/0.4 ML SYRINGE SQ SCH (18:00)
[2017-08-28] VITALS (7 sets, daily range): BP systolic 118–137; BP diastolic 58–77; PULSE 75–113; RESP 19–24; TEMP 98.1–98.8; O2SAT 92–99
[2017-08-28] MEDS: methylPREDNISolone SOD SUCC 40 MG/1 ML VIAL IV PUSH SCH ×3 (05:12→21:48)
[2017-08-28] MEDS: SODIUM CHLOR 0.9% 1000 ML INJ 1,000 ML IV SCH ×2 (05:13→10:09)
[2017-08-28] MEDS: MORPHINE SULFATE 4 MG/ML INJ IV PRN ×4 (05:13→21:46)
[2017-08-28] MEDS: SODIUM CHLORIDE 0.9% FLUSH 10 ML FLUSH IV FLUSH PRN (05:14)
[2017-08-28] MEDS: RESP: ALBUTEROL 2.5 MG/IPRATROPIUM 0.5 MG NEB (SCH) INH ×4 (08:00→20:29)
[2017-08-28] MEDS: guaiFENesin E.R. 600 MG TAB PO SCH ×2 (09:00→21:45)
[2017-08-28] MEDS: SODIUM CHLORIDE 0.9% FLUSH 10 ML FLUSH IV FLUSH SCH ×2 (10:08→21:47)
[2017-08-28] MEDS: ALPRAZolam 0.5 MG TAB PO PRN (15:54)
--- NOTE | 2017-08-28 17:26 | HHI.PR ---
Subjective Remarks Patient was seen earlier today. Says she still with wheezing and shortness of breath feels a little bit improved since yesterday. Still requires oxygen, failed oxygen walking test Nurse cough yellow color no blood in it. Objective Vitals Vital Signs Date Time Temp Pulse Resp B/P (MAP) Pulse Ox O2 Delivery O2 Flow Rate FiO2 08/28/17 16:05 98.3 113 24 133/76 (95) 92 08/28/17 12:45 98.2 90 20 118/58 (78) 95 08/28/17 08:30 98.2 76 21 122/69 (86) 97 08/28/17 08:19 96 Nasal Cannula 2.00 08/28/17 08:00 Nasal Cannula 3.00 08/28/17 04:00 98.1 75 129/77 (94) 94 08/27/17 21:10 99 Nasal Cannula 2.00 08/27/17 20:00 Nasal Cannula 3.00 08/27/17 20:00 97.7 99 20 142/69 (93) 93 I/O 08/27/17 08/27/17 08/27/17 08/28/17 08/28/17 08/28/17 07:00 15:00 23:00 07:00 15:00 23:00 Intake Total 840 ml 480 ml Output Total 600 ml Balance 240 ml 480 ml Intake Oral 840 ml 480 ml Output Urine Total 600 ml # Voids 3 # Bowel Movements 1 Result Diagram: 08/26/17 0607 08/26/17 0607 Objective Remarks GENERAL: The patient is in bed she appears short of breath with wheezing. Speaks in short sentences. On nasal cannula at this time. CARDIOVASCULAR: Regular rate and rhythm without murmurs, gallops, or rubs. RESPIRATORY: Scattered wheezing,. No accessory muscle use. With shortness of breath. On nasal cannula. GASTROINTESTINAL: Abdomen soft, non-tender, nondistended. MUSCULOSKELETAL: No cyanosis, or edema. SKIN: Warm and dry. NEURO: Awake and alert. Follows commands. A/P Problem List: (1) COPD exacerbation ICD Code: J44.1 - Chronic obstructive pulmonary disease with (acute) exacerbation (2) Bronchitis ICD Code: J40 - Bronchitis, not specified as acute or chronic (3) Hypoxia ICD Code: R09.02 - Hypoxemia (4) Respiratory failure ICD Code: J96.90 - Respiratory failure, unspecified, unspecified whether with hypoxia or hypercapnia Assessment and Plan Patient is in bed she appears sometimes 62-year-old female admitted secondary to COPD exacerbation and hypoxia related to bronchitis COPD with exacerbation Hypoxia Acute respiratory failure patient was requiring BiPAP on admission currently on nasal cannula. Patient is not on oxygen at home. Bronchitis Continue oxygen supplements as needed Schedule duo nebs When necessary albuterol Azithromycin Systemic steroids, continue to taper Follow for improvement in respiratory status Follow for improvement in exertional tolerance next Off BiPAP as this time. Add incentive spirometry Add Acapella Increase Mucinex to 1200 mg twice daily patient says is helping. Check blood cultures, Legionella and pneumococcal antigen in the urine, sputum cultures. We will have oxygen walk test prior to discharge Consult barrel polisher inside patient is not improving expected Patient with hypoxia will do CT under to rule out PE. CT angiogram reviewed no PE. Failed oxygen walking patient probably will need oxygen at home Osteoarthritis General anxiety disorder Depression Gastroesophageal reflux disease Hepatitis C/cirrhosis Hiatal hernia Follow clinically Nicotine dependence Patient counseled to quit smoking DVT prophylaxis SCDs, Lovenox Discussed with the patient, nurse Discharge plan pending improvement. Possible discharge in 1 to 2 days IF improves and if is cleared by pulmonology. Belgica Asher MD Aug 28, 2017 17:26
[2017-08-28] MEDS: ENOXAPARIN SODIUM 40 MG/0.4 ML SYRINGE SQ SCH (17:56)
[2017-08-28] MEDS: AZITHROMYCIN INJ 500 MG in SODIUM CHLOR 0.9% 250 ML INJ 250 ML IV SCH (17:56)
--- NOTE | 2017-08-28 18:48 | MB ---
cc: Cain Marin MD DATE: 08/28/2017 REASON FOR CONSULTATION: COPD exacerbation. HISTORY OF PRESENT ILLNESS: The patient is a 62-year-old female who is known to have history of COPD. The patient does not followup with the portfolio analyst. The patient came into the hospital 2-3 days ago because of COPD exacerbation. She was getting ready to be discharged, however, she is not responding and she is still short of breath, coughing and wheezing of a significant degree. She does not have any hemoptysis. I was consulted to see if we can assist in her medical care. PAST MEDICAL HISTORY: Positive for COPD, osteoarthritis, anxiety, depression, hiatal hernia, hepatitis with cirrhosis and GERD. PAST SURGICAL HISTORY: Positive for cholecystectomy, and hysterectomy. MEDICATIONS: Reviewed in detail. ALLERGIES: NONE TO MEDICATIONS. FAMILY HISTORY: Positive for melanoma in her mother. Neck cancer and CVA in her father. SOCIAL HISTORY: Positive for history of smoking. She still smokes half a pack per day. No documented substance abuse. PHYSICAL EXAMINATION: VITAL SIGNS: Temperature 98.3, pulse 90-113, respiratory rate 24, blood pressure 130/76, she is saturating 92% on 2 liters nasal cannula. HEAD AND NECK: Atraumatic, normocephalic. NECK: Trachea midline. LUNGS: Bilateral expiratory and inspiratory wheezing of significant degree. HEART: S1, S2, tachycardic. ABDOMEN: Soft. EXTREMITIES: No significant edema. NEUROLOGIC: Awake, oriented, moves all extremities. IMAGING: I reviewed a CT chest, did not show any acute findings. LABORATORY DATA: WBC is 2.9, hemoglobin 11.5, creatinine is 0.5, BUN is 7. BNP is 129 from the 11th. ASSESSMENT AND PLAN: 1. Severe chronic obstructive pulmonary disease with an acute chronic obstructive pulmonary disease exacerbation. 2. Tobacco abuse. I decided to increase the dose of the Solu-Medrol to 60 mg IV q. 6 hours. Order DuoNebs every 6 hours. I will order Symbicort 160/4.5 2 puffs b.i.d. The patient will rinse her mouth after that. I would like to continue the same plan of care. I will check on her in a day or two to see how she is doing. Depending on her progress, we will make further decisions. It is not uncommon for severe COPD exacerbation to take up to 5-7 days before we start seeing an improvement. Thank you for this consultation. MD DEMETRIS Goodrich/JAY , 05:58 PM , 06:46 PM
[2017-08-29] VITALS (9 sets, daily range): BP systolic 107–158; BP diastolic 58–76; PULSE 63–91; RESP 17–19; TEMP 97.8–98.6; O2SAT 94–99
[2017-08-29] MEDS: MORPHINE SULFATE 4 MG/ML INJ IV PRN ×6 (02:04→22:41)
[2017-08-29] MEDS: methylPREDNISolone SOD SUCC 40 MG/1 ML VIAL IV PUSH SCH (05:51)
--- NOTE | 2017-08-29 07:58 | HHI.PR ---
Subjective Remarks The patient still with wheezing. Shortness of breath is improving. No fever or chills. Has cough with production of sputum yellowish colored. Has some chest pain especially with cough. No fever or chills. Objective Vitals Vital Signs Date Time Temp Pulse Resp B/P (MAP) Pulse Ox O2 Delivery O2 Flow Rate FiO2 08/29/17 04:00 98.0 91 17 136/76 (96) 95 08/29/17 00:00 98.1 85 17 121/58 (79) 94 08/28/17 21:45 Nasal Cannula 3.50 08/28/17 20:29 96 Nasal Cannula 2.00 08/28/17 20:00 98.8 90 19 137/64 (88) 99 08/28/17 16:05 98.3 113 24 133/76 (95) 92 08/28/17 16:00 Nasal Cannula 3.00 08/28/17 12:45 98.2 90 20 118/58 (78) 95 08/28/17 12:00 Nasal Cannula 3.00 08/28/17 08:30 98.2 76 21 122/69 (86) 97 08/28/17 08:19 96 Nasal Cannula 2.00 08/28/17 08:00 Nasal Cannula 3.00 I/O 08/28/17 08/28/17 08/28/17 08/29/17 08/29/17 08/29/17 07:00 15:00 23:00 07:00 15:00 23:00 Intake Total 480 ml 720 ml 240 ml Output Total 500 ml 700 ml Balance 480 ml 220 ml -460 ml Intake Oral 480 ml 720 ml 240 ml Output Urine Total 500 ml 700 ml # Voids 3 # Bowel Movements 1 0 Result Diagram: 08/26/17 0607 08/26/17 [address] Angiography 08/27/17 0000 Signed Impressions: CONCLUSION: 1. Negative for central pulmonary emboli. 2. There is no infiltrate 3. I don't see a rib fracture. 4. Minimal LAD calcifications Chest X-Ray 08/25/17 1301 Signed Impressions: CONCLUSION: Negative examination. Objective Remarks GENERAL: The patient is in bed she appears short of breath with wheezing. On nasal cannula at this time. CARDIOVASCULAR: Regular rate and rhythm without murmurs, gallops, or rubs. RESPIRATORY: Scattered wheezing,. No accessory muscle use. Less shortness of breath. On nasal cannula. GASTROINTESTINAL: Abdomen soft, non-tender, nondistended. MUSCULOSKELETAL: No cyanosis, or edema. SKIN: Warm and dry. NEURO: Awake and alert. Follows commands. A/P Problem List: (1) COPD exacerbation ICD Code: J44.1 - Chronic obstructive pulmonary disease with (acute) exacerbation (2) Bronchitis ICD Code: J40 - Bronchitis, not specified as acute or chronic (3) Hypoxia ICD Code: R09.02 - Hypoxemia (4) Respiratory failure ICD Code: J96.90 - Respiratory failure, unspecified, unspecified whether with hypoxia or hypercapnia Assessment and Plan Patient is in bed she appears sometimes 62-year-old female admitted secondary to COPD exacerbation and hypoxia related to bronchitis COPD with exacerbation Hypoxia Acute respiratory failure patient was requiring BiPAP on admission currently on nasal cannula. Patient is not on oxygen at home. Bronchitis Continue oxygen supplements as needed Schedule duo nebs When necessary albuterol Azithromycin Systemic steroids, increased as patient not improving much. Monitor and taper as tolerated. Add Symbicort. Continue Mucinex to 1200 mg twice daily patient says is helping. Off BiPAP as this time. Incentive spirometry, Acapella Check blood cultures, Legionella and pneumococcal antigen in the urine, sputum cultures. Failed oxygen walk test. Consult director corporate security patient is not improving expected Patient with hypoxia will do CT under to rule out PE. CT angiogram reviewed no PE. Failed oxygen walking patient probably will need oxygen at home Osteoarthritis General anxiety disorder Depression Gastroesophageal reflux disease Hepatitis C/cirrhosis Hiatal hernia Follow clinically Nicotine dependence Patient counseled to quit smoking DVT prophylaxis SCDs, Lovenox Discussed with the patient, nurse Discharge plan pending improvement. Possible discharge in 1 to 2 days IF improves and if is cleared by pulmonology. Belgica Asher MD Aug 29, 2017 07:58
[2017-08-29] MEDS: RESP: ALBUTEROL 2.5 MG/IPRATROPIUM 0.5 MG NEB (SCH) INH ×3 (08:00→19:48)
[2017-08-29] MEDS: guaiFENesin E.R. 600 MG TAB PO SCH ×2 (09:15→22:40)
[2017-08-29] MEDS: SODIUM CHLORIDE 0.9% FLUSH 10 ML FLUSH IV FLUSH SCH ×2 (09:16→22:42)
[2017-08-29] MEDS: methylPREDNISolone SOD SUCC 125 MG/2 ML VIAL IV SCH ×2 (13:33→18:47)
[2017-08-29] MEDS: ENOXAPARIN SODIUM 40 MG/0.4 ML SYRINGE SQ SCH (18:48)
[2017-08-29] MEDS: AZITHROMYCIN INJ 500 MG in SODIUM CHLOR 0.9% 250 ML INJ 250 ML IV SCH (18:48)
[2017-08-29] MEDS: ALPRAZolam 0.5 MG TAB PO PRN (20:12)
[2017-08-29] MEDS: BUDESONIDE-FORMOTEROL 160/4.5 MCG INHALER INH SCH (22:39)
[2017-08-30] VITALS (10 sets, daily range): BP systolic 128–159; BP diastolic 62–109; PULSE 72–101; RESP 16–20; TEMP 97.8–98.8; O2SAT 93–98
[2017-08-30] MEDS: MORPHINE SULFATE 4 MG/ML INJ IV PRN ×5 (03:48→22:28)
[2017-08-30] MEDS: methylPREDNISolone SOD SUCC 125 MG/2 ML VIAL IV SCH ×3 (06:34→12:34)
[2017-08-30] MEDS: RESP: ALBUTEROL 2.5 MG/IPRATROPIUM 0.5 MG NEB (SCH) INH ×3 (07:39→19:37)
[2017-08-30] MEDS: guaiFENesin E.R. 600 MG TAB PO SCH ×2 (08:02→19:49)
[2017-08-30] MEDS: BUDESONIDE-FORMOTEROL 160/4.5 MCG INHALER INH SCH ×2 (08:03→19:49)
[2017-08-30] MEDS: SODIUM CHLORIDE 0.9% FLUSH 10 ML FLUSH IV FLUSH SCH ×2 (08:03→19:49)
--- NOTE | 2017-08-30 09:16 | HHI.PR ---
Subjective Remarks Is seen today feels improving. Was cough productive of sputum yellow in color. No fever chills overnight. No nausea vomiting no diarrhea constipation. Able to eat. Objective Vitals Vital Signs Date Time Temp Pulse Resp B/P (MAP) Pulse Ox O2 Delivery O2 Flow Rate FiO2 08/30/17 07:47 98 Nasal Cannula 3.50 08/30/17 07:00 Nasal Cannula 3.50 08/30/17 04:00 98.8 72 16 128/63 (84) 94 08/30/17 00:00 98.4 78 19 142/62 (88) 93 08/29/17 20:00 Nasal Cannula 3.50 08/29/17 20:00 97.8 77 18 158/72 (100) 95 08/29/17 20:00 66 08/29/17 19:48 99 Nasal Cannula 2.00 08/29/17 16:00 Nasal Cannula 3.50 08/29/17 16:00 98.6 82 19 127/59 (81) 97 08/29/17 12:00 Nasal Cannula 3.50 08/29/17 12:00 98.4 81 18 107/58 (74) 96 I/O 08/29/17 08/29/17 08/29/17 08/30/17 08/30/17 08/30/17 07:00 15:00 23:00 07:00 15:00 23:00 Intake Total 240 ml 480 ml Output Total 700 ml 800 ml Balance -460 ml -320 ml Intake Oral 240 ml 480 ml Output Urine Total 700 ml 800 ml # Voids 2 # Bowel Movements 0 0 0 Result Diagram: 08/26/17 0607 08/26/17 [address] Angiography 08/27/17 0000 Signed Impressions: CONCLUSION: 1. Negative for central pulmonary emboli. 2. There is no infiltrate 3. I don't see a rib fracture. 4. Minimal LAD calcifications Chest X-Ray 08/25/17 1301 Signed Impressions: CONCLUSION: Negative examination. Objective Remarks GENERAL: The patient is in bed she appears short of breath with wheezing. On nasal cannula at this time. CARDIOVASCULAR: Regular rate and rhythm without murmurs, gallops, or rubs. RESPIRATORY: Scattered wheezing,. No accessory muscle use. Less shortness of breath. On nasal cannula. GASTROINTESTINAL: Abdomen soft, non-tender, nondistended. MUSCULOSKELETAL: No cyanosis, or edema. SKIN: Warm and dry. NEURO: Awake and alert. Follows commands. A/P Problem List: (1) COPD exacerbation ICD Code: J44.1 - Chronic obstructive pulmonary disease with (acute) exacerbation (2) Bronchitis ICD Code: J40 - Bronchitis, not specified as acute or chronic (3) Hypoxia ICD Code: R09.02 - Hypoxemia (4) Respiratory failure ICD Code: J96.90 - Respiratory failure, unspecified, unspecified whether with hypoxia or hypercapnia (5) Severe chronic obstructive pulmonary disease ICD Code: J44.9 - Chronic obstructive pulmonary disease, unspecified Assessment and Plan 62-year-old female admitted secondary to COPD exacerbation and hypoxia related to bronchitis/severe COPD Severe COPD with exacerbation Hypoxia Acute respiratory failure patient was requiring BiPAP on admission currently on nasal cannula. Patient is not on oxygen at home. Bronchitis Continue oxygen supplements as needed Schedule duo nebs When necessary albuterol Azithromycin DC Systemic steroids. Start pred 40 mg daily. Monitor and taper as tolerated. Cont Symbicort. Continue Mucinex to 1200 mg twice daily patient says is helping. Off BiPAP as this time. Incentive spirometry, Acapella Check blood cultures, Legionella and pneumococcal antigen in the urine, sputum cultures. Failed oxygen walk test. 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 CT angiogram reviewed no PE. Failed oxygen walking patient probably will need oxygen at home Osteoarthritis General anxiety disorder Depression Gastroesophageal reflux disease Hepatitis C/cirrhosis Hiatal hernia Follow clinically Nicotine dependence Patient counseled to quit smoking DVT prophylaxis SCDs, Lovenox Discussed with the patient, nurse Discharge plan pending improvement. Possible discharge in 1 to 2 days IF improves and if is cleared by pulmonology. Belgica Asher MD Aug 30, 2017 09:16
--- NOTE | 2017-08-30 14:10 | HHI.PR ---
Subjective Remarks better less wheezing Objective Vital Signs Date Time Temp Pulse Resp B/P (MAP) Pulse Ox O2 Delivery O2 Flow Rate FiO2 08/30/17 12:00 101 08/30/17 07:47 98 Nasal Cannula 3.50 08/30/17 07:00 Nasal Cannula 3.50 08/30/17 04:00 98.8 72 16 128/63 (84) 94 08/30/17 00:00 98.4 78 19 142/62 (88) 93 08/29/17 20:00 Nasal Cannula 3.50 08/29/17 20:00 97.8 77 18 158/72 (100) 95 08/29/17 20:00 66 08/29/17 19:48 99 Nasal Cannula 2.00 08/29/17 16:00 Nasal Cannula 3.50 08/29/17 16:00 98.6 82 19 127/59 (81) 97 I/O 08/29/17 08/29/17 08/29/17 08/30/17 08/30/17 08/30/17 06:59 14:59 22:59 06:59 14:59 22:59 Intake Total 240 ml 480 ml Output Total 700 ml 800 ml Balance -460 ml -320 ml Intake Oral 240 ml 480 ml Output Urine Total 700 ml 800 ml # Voids 2 # Bowel Movements 0 0 0 Result Diagram: 08/26/17 0607 08/26/17 0607 Objective Remarks HEAD AND NECK: Atraumatic, normocephalic. NECK: Trachea midline. LUNGS: Bilateral expiratory and inspiratory wheezing that is less. HEART: S1, S2, tachycardic. ABDOMEN: Soft. EXTREMITIES: No significant edema. NEUROLOGIC: Awake, oriented, moves all extremities. Assessment and Plan Assessment and Plan ASSESSMENT AND PLAN: 1. Severe chronic obstructive pulmonary disease with an acute chronic obstructive pulmonary disease exacerbation. 2. Tobacco abuse. better d/c iv steroids start pred 40 mg daily cont symbicort ? home in 1-2 days on weaning dose of steroids will need outpxt f/u Cain Marin MD Aug 30, 2017 14:10
[2017-08-30] MEDS: ENOXAPARIN SODIUM 40 MG/0.4 ML SYRINGE SQ SCH (17:43)
[2017-08-30] MEDS: AZITHROMYCIN INJ 500 MG in SODIUM CHLOR 0.9% 250 ML INJ 250 ML IV SCH (17:54)
[2017-08-30] MEDS: BENZONATATE 100 MG CAP PO PRN (19:49)
[2017-08-30] MEDS: ALPRAZolam 0.5 MG TAB PO PRN (19:49)
[2017-08-31] VITALS (11 sets, daily range): BP systolic 106–121; BP diastolic 54–59; PULSE 66–95; RESP 17–20; TEMP 97.9–98.4; O2SAT 92–99
[2017-08-31] MEDS: RESP: ALBUTEROL 2.5 MG/IPRATROPIUM 0.5 MG NEB (SCH) INH ×3 (07:41→21:11)
[2017-08-31] MEDS: MORPHINE SULFATE 4 MG/ML INJ IV PRN ×5 (07:58→22:28)
[2017-08-31] MEDS: guaiFENesin E.R. 600 MG TAB PO SCH ×2 (07:59→20:23)
[2017-08-31] MEDS: predniSONE 20 MG TAB PO SCH (08:00)
[2017-08-31] MEDS: BUDESONIDE-FORMOTEROL 160/4.5 MCG INHALER INH SCH ×2 (08:00→20:23)
[2017-08-31] MEDS: SODIUM CHLORIDE 0.9% FLUSH 10 ML FLUSH IV FLUSH SCH ×2 (08:01→20:23)
[2017-08-31] MEDS: BENZONATATE 100 MG CAP PO PRN ×3 (08:02→22:28)
--- NOTE | 2017-08-31 09:51 | HHI.PR ---
Subjective Remarks Patient is seen bed says she feels improved today. Less wheezing. No nausea or vomiting. Says however she still feels weak. Is able to ambulate he has a cane and she also has a walker at home. Objective Vitals Vital Signs Date Time Temp Pulse Resp B/P (MAP) Pulse Ox O2 Delivery O2 Flow Rate FiO2 08/31/17 07:43 92 21 08/31/17 07:00 Room Air 93 08/31/17 04:00 98.2 71 17 119/59 (79) 94 08/31/17 04:00 Nasal Cannula 2.50 08/31/17 03:46 69 08/31/17 00:00 Nasal Cannula 2.50 08/31/17 00:00 98.4 80 18 120/58 (78) 95 08/30/17 23:53 72 08/30/17 20:00 97.9 83 18 132/70 (90) 96 08/30/17 20:00 Nasal Cannula 3.00 08/30/17 19:50 81 08/30/17 19:37 96 Nasal Cannula 2.50 08/30/17 16:00 97.8 84 20 132/62 (85) 95 08/30/17 16:00 78 08/30/17 12:00 98.0 87 20 142/109 (120) 96 08/30/17 12:00 101 I/O 08/30/17 08/30/17 08/30/17 08/31/17 08/31/17 08/31/17 07:00 15:00 23:00 07:00 15:00 23:00 Intake Total 480 ml 600 ml 720 ml Output Total 800 ml 300 ml Balance -320 ml 300 ml 720 ml Intake Oral 480 ml 600 ml 720 ml Output Urine Total 800 ml 300 ml # Voids 2 7 # Bowel Movements 0 [address] Angiography 08/27/17 0000 Signed Impressions: CONCLUSION: 1. Negative for central pulmonary emboli. 2. There is no infiltrate 3. I don't see a rib fracture. 4. Minimal LAD calcifications Chest X-Ray 08/25/17 1301 Signed Impressions: CONCLUSION: Negative examination. Objective Remarks GENERAL: The patient is in bed she appears short of breath with wheezing. On nasal cannula at this time. CARDIOVASCULAR: Regular rate and rhythm without murmurs, gallops, or rubs. RESPIRATORY: Less wheezing,. No accessory muscle use. Less shortness of breath. On nasal cannula. GASTROINTESTINAL: Abdomen soft, non-tender, nondistended. MUSCULOSKELETAL: No cyanosis, or edema. SKIN: Warm and dry. NEURO: Awake and alert. Follows commands. A/P Problem List: (1) COPD exacerbation ICD Code: J44.1 - Chronic obstructive pulmonary disease with (acute) exacerbation (2) Bronchitis ICD Code: J40 - Bronchitis, not specified as acute or chronic (3) Hypoxia ICD Code: R09.02 - Hypoxemia (4) Respiratory failure ICD Code: J96.90 - Respiratory failure, unspecified, unspecified whether with hypoxia or hypercapnia (5) Severe chronic obstructive pulmonary disease ICD Code: J44.9 - Chronic obstructive pulmonary disease, unspecified Assessment and Plan 62-year-old female admitted secondary to COPD exacerbation and hypoxia related to bronchitis/severe COPD Severe COPD with exacerbation Hypoxia Acute respiratory failure patient was requiring BiPAP on admission currently on nasal cannula. Patient is not on oxygen at home. Bronchitis Continue oxygen supplements as needed Schedule duo nebs When necessary albuterol Azithromycin DC Systemic steroids. Start pred 40 mg daily. Monitor and taper as tolerated. Cont Symbicort. Continue Mucinex to 1200 mg twice daily patient says is helping. Off BiPAP as this time. Incentive spirometry, Acapella Check blood cultures, Legionella and pneumococcal antigen in the urine, sputum cultures. Failed oxygen walk test. Consult [employer] consultant patient is not improving expected Patient with hypoxia will do CT under to rule out PE. CT angiogram reviewed no PE. Failed oxygen walking patient probably will need oxygen at home Osteoarthritis General anxiety disorder Depression Gastroesophageal reflux disease Hepatitis C/cirrhosis Hiatal hernia Follow clinically Nicotine dependence Patient counseled to quit smoking DVT prophylaxis SCDs, Lovenox Discussed with the patient, nurse Discharge plan pending improvement. Possible discharge tomorrow IF improves and if is cleared by pulmonology. Failed oxygen walking test. Needs oxygen at home. Awaiting also for oxygen to be delivered at home. Case management is following for discharge plan. Belgica Asher MD Aug 31, 2017 09:51
[2017-08-31] MEDS: ENOXAPARIN SODIUM 40 MG/0.4 ML SYRINGE SQ SCH (17:48)
[2017-08-31] MEDS: AZITHROMYCIN INJ 500 MG in SODIUM CHLOR 0.9% 250 ML INJ 250 ML IV SCH (17:48)
[2017-08-31] MEDS: ALPRAZolam 0.5 MG TAB PO PRN (20:23)
[2017-09-01] VITALS (9 sets, daily range): BP systolic 102–164; BP diastolic 53–73; PULSE 63–89; RESP 16–20; TEMP 97.4–98; O2SAT 94–98
[2017-09-01] MEDS: MORPHINE SULFATE 4 MG/ML INJ IV PRN ×4 (01:40→14:15)
[2017-09-01] MEDS: RESP: ALBUTEROL 2.5 MG/IPRATROPIUM 0.5 MG NEB (SCH) INH ×3 (08:21→19:54)
[2017-09-01] MEDS: SODIUM CHLORIDE 0.9% FLUSH 10 ML FLUSH IV FLUSH SCH (09:00)
[2017-09-01] MEDS: BUDESONIDE-FORMOTEROL 160/4.5 MCG INHALER INH SCH (09:57)
[2017-09-01] MEDS: guaiFENesin E.R. 600 MG TAB PO SCH (09:57)
[2017-09-01] MEDS: predniSONE 20 MG TAB PO SCH (09:57)
--- NOTE | 2017-09-01 13:23 | HHI.PR ---
Subjective Remarks better Objective Vital Signs Date Time Temp Pulse Resp B/P (MAP) Pulse Ox O2 Delivery O2 Flow Rate FiO2 09/01/17 12:29 2.00 09/01/17 08:24 95 Nasal Cannula 2.00 09/01/17 08:00 97.4 71 20 138/71 (93) 98 09/01/17 07:30 63 09/01/17 07:00 Nasal Cannula 1.00 09/01/17 04:00 Nasal Cannula 1.00 09/01/17 04:00 97.6 66 16 102/63 (76) 96 09/01/17 03:46 66 09/01/17 00:00 98.0 85 17 110/53 (72) 94 09/01/17 00:00 Nasal Cannula 1.00 08/31/17 23:45 95 08/31/17 22:32 Nasal Cannula 1.00 08/31/17 21:14 98 Nasal Cannula 2.00 08/31/17 20:00 Nasal Cannula 2.00 08/31/17 20:00 98.1 81 17 113/55 (74) 96 08/31/17 19:47 66 08/31/17 16:00 81 08/31/17 16:00 98.1 74 20 106/54 (71) 93 I/O 08/31/17 08/31/17 08/31/17 09/01/17 09/01/17 09/01/17 07:00 15:00 23:00 07:00 15:00 23:00 Intake Total 720 ml 480 ml 1340 ml Output Total 300 ml Balance 720 ml 480 ml 1040 ml Intake Oral 720 ml 480 ml 1340 ml Output Urine Total 300 ml # Voids 7 4 2 # Bowel Movements 1 Objective Remarks HEAD AND NECK: Atraumatic, normocephalic. NECK: Trachea midline. LUNGS: sig less Bilateral expiratory and inspiratory wheezing HEART: S1, S2, tachycardic. ABDOMEN: Soft. EXTREMITIES: No significant edema. NEUROLOGIC: Awake, oriented, moves all extremities. Assessment and Plan Assessment and Plan ASSESSMENT AND PLAN: 1. Severe chronic obstructive pulmonary disease with an acute chronic obstructive pulmonary disease exacerbation. 2. Tobacco abuse. better ok to go home will follow up in office Cain Marin MD Sep 01, 2017 13:23
[2017-09-01] MEDS ORDERED: OXYGENTANK NAS.CANULA (13:24)
[2017-09-01] MEDS: BENZONATATE 100 MG CAP PO PRN (14:14)
--- NOTE | 2017-09-01 14:23 | HHI.PR ---
Subjective Remarks Patient denies any chest pain, with less shortness of breath she can ambulate. Less wheezing. She is oxygen at home if she failed oxygen walking test. No nausea vomiting diarrhea or constipation. Objective Vitals Vital Signs Date Time Temp Pulse Resp B/P (MAP) Pulse Ox O2 Delivery O2 Flow Rate FiO2 09/01/17 12:29 2.00 09/01/17 12:00 97.8 83 20 109/73 (85) 98 09/01/17 08:24 95 Nasal Cannula 2.00 09/01/17 08:00 97.4 71 20 138/71 (93) 98 09/01/17 08:00 89 09/01/17 07:30 63 09/01/17 07:00 Nasal Cannula 1.00 09/01/17 04:00 Nasal Cannula 1.00 09/01/17 04:00 97.6 66 16 102/63 (76) 96 09/01/17 03:46 66 09/01/17 00:00 98.0 85 17 110/53 (72) 94 09/01/17 00:00 Nasal Cannula 1.00 08/31/17 23:45 95 08/31/17 22:32 Nasal Cannula 1.00 08/31/17 21:14 98 Nasal Cannula 2.00 08/31/17 20:00 Nasal Cannula 2.00 08/31/17 20:00 98.1 81 17 113/55 (74) 96 08/31/17 19:47 66 08/31/17 16:00 81 08/31/17 16:00 98.1 74 20 106/54 (71) 93 I/O 08/31/17 08/31/17 08/31/17 09/01/17 09/01/17 09/01/17 07:00 15:00 23:00 07:00 15:00 23:00 Intake Total 720 ml 480 ml 1340 ml Output Total 300 ml Balance 720 ml 480 ml 1040 ml Intake Oral 720 ml 480 ml 1340 ml Output Urine Total 300 ml # Voids 7 4 2 # Bowel Movements [address] Angiography 08/27/17 0000 Signed Impressions: CONCLUSION: 1. Negative for central pulmonary emboli. 2. There is no infiltrate 3. I don't see a rib fracture. 4. Minimal LAD calcifications Chest X-Ray 08/25/17 1301 Signed Impressions: CONCLUSION: Negative examination. Objective Remarks GENERAL: The patient is in bed she appears short of breath with wheezing. On nasal cannula at this time. CARDIOVASCULAR: Regular rate and rhythm without murmurs, gallops, or rubs. RESPIRATORY: Less wheezing,. No accessory muscle use. Less shortness of breath. On nasal cannula. GASTROINTESTINAL: Abdomen soft, non-tender, nondistended. MUSCULOSKELETAL: No cyanosis, or edema. SKIN: Warm and dry. NEURO: Awake and alert. Follows commands. A/P Problem List: (1) COPD exacerbation ICD Code: J44.1 - Chronic obstructive pulmonary disease with (acute) exacerbation (2) Bronchitis ICD Code: J40 - Bronchitis, not specified as acute or chronic (3) Hypoxia ICD Code: R09.02 - Hypoxemia (4) Respiratory failure ICD Code: J96.90 - Respiratory failure, unspecified, unspecified whether with hypoxia or hypercapnia (5) Severe chronic obstructive pulmonary disease ICD Code: J44.9 - Chronic obstructive pulmonary disease, unspecified Assessment and Plan 62-year-old female admitted secondary to COPD exacerbation and hypoxia related to bronchitis/severe COPD Severe COPD Presented with COPD with exacerbation improved now Hypoxia. Failed O2 walking test, needs O2 at home. Acute respiratory failure patient was requiring BiPAP on admission currently on nasal cannula. Patient is not on oxygen at home. Bronchitis Continue oxygen supplements as needed Schedule duo nebs When necessary albuterol Azithromycin DC Systemic steroids. Start pred 40 mg daily. Monitor and taper as tolerated. Cont Symbicort. Continue Mucinex to 1200 mg twice daily patient says is helping. Off BiPAP as this time. Incentive spirometry, Acapella Check blood cultures, Legionella and pneumococcal antigen in the urine, sputum cultures. Failed oxygen walk test. 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 CT angiogram reviewed no PE. Failed oxygen walking patient probably will need oxygen at home Osteoarthritis General anxiety disorder Depression Gastroesophageal reflux disease Hepatitis C/cirrhosis Hiatal hernia Follow clinically Nicotine dependence Patient counseled to quit smoking DVT prophylaxis SCDs, Lovenox Discussed with the patient, nurse Discharge plan pending improvement. Possible discharge tomorrow IF improves and if is cleared by pulmonology. Failed oxygen walking test. Needs oxygen at home. Awaiting also for oxygen to be delivered at home. Case management is following for discharge plan. Belgica Asher MD 18, 2018 14:23
--- NOTE | 2017-09-01 15:14 | HHI.FF ---
Face to Face Verification Diagnosis: (1) Bronchitis (2) COPD exacerbation (3) Respiratory failure (4) Hypoxia (5) Severe chronic obstructive pulmonary disease Home Health Nursing Order: Medical education Signs/symptoms of disease process Oxygen administration education Medication education-adverse effect Nursing assessment with vital signs Telehealth I have seen patient Leeanne Godoy on 09/01/17. My clinical findings support the need for the requested home health care services because: Ltd mobility - disease progression Patient has SOB I certify that my clinical findings support that this patient is homebound because: Post-op weakness Hx COPD- exertion dyspnea/weakness Belgica Asher MD Sep 01, 2017 15:14
[2017-09-01] MEDS ORDERED: HYDROmorphone HCL 2 MG TAB PO ONE (20:00)
== END 2017-09-01 20:18 | disposition home or self-care (01) | DRG 190 ==
LOC: NEPE 12:45 → NEDA 16:12 → OBSVTOIN 16:26 → NEDA 18:19 → N04A 18:19 → UNDODISIN 09-01 17:00 → N04A 09-01 17:39
PROVIDERS: ADMIT Hospitalist; ATTEND Hospitalist
DX: J44.1 Chronic obstructive pulmonary disease with (acute) exacerbation (principal); J96.01 Acute respiratory failure with hypoxia; F41.1 Generalized anxiety disorder; K21.9 Gastro-esophageal reflux disease without esophagitis; M19.90 Unspecified osteoarthritis, unspecified site; B19.20 Unspecified viral hepatitis C without hepatic coma; K74.60 Unspecified cirrhosis of liver; F17.210 Nicotine dependence, cigarettes, uncomplicated; K44.9 Diaphragmatic hernia without obstruction or gangrene; J40 Bronchitis, not specified as acute or chronic; Z99.81 Dependence on supplemental oxygen; Z79.899 Other long term (current) drug therapy
CPT/HCPCS: 71046; 71275; 80048; 80053; 83880; 85025; 85379; 87040; 87804; 90732; 93005; 94002; 94150; 94618; 94640; 94664; 94668; 96374; J0456; J1650; J2270; J2920; J2930; J7030; J7050; J7512; Q9967